=== PATIENT | male | born 1980 | race African-American/Black ===

== ENCOUNTER 2018-02-12 09:19 | Emergency (ER) | payer MEDICAID ==
[~2018-02-12] VITALS: Ht 180.3 cm; Wt 78.9 kg
[2018-02-12 09:33] VITALS: BP 127/79
== END 2018-02-12 11:21 | disposition home or self-care (01) ==
LOC: ER 09:19
DX: S83.92XA Sprain of unspecified site of left knee, initial encounter (principal); X50.9XXA Other and unspecified overexertion or strenuous movements or postures, initial encounter; Y93.67 Activity, basketball; Y99.8 Other external cause status; Y92.89 Other specified places as the place of occurrence of the external cause
CPT/HCPCS: 29505; 73562